=== PATIENT | male | born 1965 | race Two or more races ===

== ENCOUNTER 2018-10-23 07:36 | Emergency (ER) | payer MEDICAID, OTHER ==
[~2018-10-23] VITALS: Ht 175.3 cm; Wt 75.7 kg
[2018-10-23] MEDS ORDERED: cloNIDine HCL 0.1 MG TAB ONE (07:45)
[2018-10-23] MEDS ORDERED: cloNIDine HCL 0.1 MG TAB PO ONE (08:00)
[2018-10-23] MEDS ORDERED: METOPROLOL TARTRATE 50 MG TAB PO ONE (08:15)
[2018-10-23 08:49] VITALS: BP 160/109
== END 2018-10-23 08:52 | disposition home or self-care (01) ==
LOC: ER 07:41
DX: I10 Essential (primary) hypertension (principal); Z88.0 Allergy status to penicillin; Z86.73 Personal history of transient ischemic attack (TIA), and cerebral infarction without residual deficits; Z76.0 Encounter for issue of repeat prescription; Z74.1 Need for assistance with personal care
CPT/HCPCS: 93005

== ENCOUNTER 2018-12-18 07:50 | Emergency (ER) | payer MEDICAID ==
[~2018-12-18] VITALS: Ht 175.3 cm; Wt 75.7 kg
[2018-12-18] MEDS ORDERED: cloNIDine HCL 0.1 MG TAB PO ONE (08:00)
[2018-12-18] MEDS ORDERED: METOPROLOL TARTRATE 50 MG TAB PO ONE (08:30)
[2018-12-18] MEDS ORDERED: MORPHINE SULFATE 4 MG/ML SYR/VIAL IV ONE (08:30)
[2018-12-18] MEDS ORDERED: METOPROLOL TARTRATE 1MG/1ML-5ML VIAL IV PRN (10:15)
[2018-12-18 10:37] LABS: Basophils # (auto) 0.1 uL; Eosinophils # (auto) 0.1 uL; Hematocrit 53.2 % (41.0-53.0); Nucleated Red Blood Cells % 0.2 %; White Blood Cell 6.6 10^3/uL (4.4-10.8)
[2018-12-18 10:39] LABS: Basophils % (auto) 1.5 % (0.0-2.0); Eosinophils % (auto) 1.6 % (0.0-7.0); Hemoglobin 17.7 g/dL (13.5-17.5); Lymphocytes # (auto) 0.9 uL; Lymphocytes % (auto) 13.3 % (10.0-50.0); Mean Corpuscular Hemoglobin 27.2 pg (28.0-32.0); Mean Corpuscular Hgb Conc. 33.4 g/dL (32.0-36.0); Mean Corpuscular Volume 81.6 fL (80.0-100.0); Monocytes # (auto) 0.2 uL; Monocytes % (auto) 3.8 % (0.0-12.0); Neutrophils # (auto) 5.3 uL; Neutrophils % (auto) 79.8 % (37.0-80.0); Platelet Count (auto) 262 10^3/uL (140-450); Red Blood Cells 6.52 10^6/uL (4.5-5.90); Red Cell Distribution Width 13.4 % (11.8-14.3)
[2018-12-18 10:55] LABS: INR 0.98 (0.9-1.15); Partial Thromboplastin Time 26.7 sec (23.78-33.04); Prothrombin Time 10.5 sec (9.27-12.13)
[2018-12-18 10:59] LABS: Albumin 4.1 g/dL (3.4-5.0); Anion Gap 9 (5-15); BUN/Creatinine Ratio 13.9; Blood Urea Nitrogen 10 mg/dL (7-18); Calcium 8.8 mg/dL (8.5-10.1); Carbon Dioxide 24 mmol/L (21-32); Chloride 107 mmol/L (98-107); GFR African American 148 mL/min; GFR Non-African American 122 mL/min; Glucose 128 mg/dL (74-106); Potassium 3.5 mmol/L (3.5-5.1); Sodium 140 mmol/L (136-145)
[2018-12-18 11:09] LABS: Alanine Aminotransferase 28 U/L (16-61); Alkaline Phosphatase 77 U/L (45-117); Aspartate Aminotransferase 20 U/L (15-37); Bilirubin, Total 1.2 mg/dL (0.2-1.0); Total Protein 8.6 g/dL (6.4-8.2)
[2018-12-18 12:23] VITALS: BP 128/90
== END 2018-12-18 12:58 | disposition home or self-care (01) ==
LOC: ER 07:50
DX: I10 Essential (primary) hypertension (principal); Z86.73 Personal history of transient ischemic attack (TIA), and cerebral infarction without residual deficits; Z88.0 Allergy status to penicillin; Z76.0 Encounter for issue of repeat prescription
CPT/HCPCS: 36415; 70450; 71046; 80053; 85025; 85610; 85730

== ENCOUNTER 2019-01-23 13:24 | Emergency (ER) | payer MEDICAID ==
[~2019-01-23] VITALS: Ht 175.3 cm; Wt 75.7 kg
[2019-01-23 13:40] VITALS: BP 125/92
== END 2019-01-23 15:35 | disposition home or self-care (01) ==
LOC: ER 13:29
DX: I10 Essential (primary) hypertension (principal); F41.9 Anxiety disorder, unspecified; Z88.0 Allergy status to penicillin; Z86.73 Personal history of transient ischemic attack (TIA), and cerebral infarction without residual deficits; Z76.0 Encounter for issue of repeat prescription

== ENCOUNTER 2019-02-21 07:09 | Emergency (ER) | payer MEDICAID ==
[~2019-02-21] VITALS: Ht 175.3 cm; Wt 76.2 kg
[2019-02-21 08:01] LABS: Basophils # (auto) 0.1 uL; Basophils % (auto) 2.6 % (0.0-2.0); Eosinophils # (auto) 0.3 uL; Eosinophils % (auto) 5.3 % (0.0-7.0); Hematocrit 54.3 % (41.0-53.0); Hemoglobin 17.9 g/dL (13.5-17.5); Lymphocytes # (auto) 1.2 uL; Lymphocytes % (auto) 21.6 % (10.0-50.0); Mean Corpuscular Hemoglobin 26.7 pg (28.0-32.0); Mean Corpuscular Hgb Conc. 32.9 g/dL (32.0-36.0); Mean Corpuscular Volume 81.3 fL (80.0-100.0); Monocytes # (auto) 0.3 uL; Monocytes % (auto) 6.3 % (0.0-12.0); Neutrophils # (auto) 3.5 uL; Neutrophils % (auto) 64.2 % (37.0-80.0); Nucleated Red Blood Cells % 0.2 %; Platelet Count (auto) 213 10^3/uL (140-450); Red Blood Cells 6.68 10^6/uL (4.5-5.90); Red Cell Distribution Width 13.7 % (11.8-14.3); White Blood Cell 5.4 10^3/uL (4.4-10.8)
[2019-02-21] MEDS ORDERED: cloNIDine HCL 0.1 MG TAB PO ONE (08:15)
[2019-02-21 08:19] LABS: Alanine Aminotransferase 30 U/L (16-61); Anion Gap 11 (5-15); Aspartate Aminotransferase 14 U/L (15-37); BUN/Creatinine Ratio 19.1; Blood Urea Nitrogen 17 mg/dL (7-18); Calcium 8.5 mg/dL (8.5-10.1); Carbon Dioxide 24 mmol/L (21-32); Chloride 108 mmol/L (98-107); GFR African American 115 mL/min; GFR Non-African American 95 mL/min; Glucose 130 mg/dL (74-106); Magnesium 2.2 mg/dL (1.6-2.6); Potassium 3.5 mmol/L (3.5-5.1); Sodium 143 mmol/L (136-145)
[2019-02-21 08:28] LABS: Alkaline Phosphatase 84 U/L (45-117); Bilirubin, Total 1.2 mg/dL (0.2-1.0); Total Protein 8.4 g/dL (6.4-8.2)
[2019-02-21 10:11] VITALS: BP 133/84
== END 2019-02-21 10:12 | disposition home or self-care (01) ==
LOC: ER 07:11
DX: I10 Essential (primary) hypertension (principal); Z88.0 Allergy status to penicillin; Z86.73 Personal history of transient ischemic attack (TIA), and cerebral infarction without residual deficits
CPT/HCPCS: 36415; 80053; 83735; 84484; 85025; 93005